=== PATIENT | male | born 1935 | race Caucasian/White ===

== ENCOUNTER 2018-06-10 13:46 | Emergency (ER) | payer MEDICAID ==
[~2018-06-10] VITALS: Ht 167.6 cm; Wt 48.0 kg
[2018-06-10] MEDS ORDERED: HYDROcodone/APAP 5/325 TABLET PO ONE (14:00)
[2018-06-10] MEDS ORDERED: HYDROcodone/APAP 5/325 TABLET ONE (14:18)
--- NOTE | 2018-06-10 14:21 | NUR ---
PT ON BP CUFF, PULSE OX. WARM BLANKET PROVIDED. NORCO GIVEN PER ERP ORDER FOR 06/15 PAIN. CALL LIGHT WITHIN REACH.
--- NOTE | 2018-06-10 14:37 | NUR ---
ALL RESULTS BACK, PT FOR RECHECK.
[2018-06-10 15:27] VITALS: BP 122/61
== END 2018-06-10 15:37 | disposition home or self-care (01) ==
LOC: ED 14:34
DX: S22.41XA Multiple fractures of ribs, right side, initial encounter for closed fracture (principal); W19.XXXA Unspecified fall, initial encounter; Y93.89 Activity, other specified; Y92.89 Other specified places as the place of occurrence of the external cause; Y99.8 Other external cause status
CPT/HCPCS: 99283

== ENCOUNTER 2019-02-19 07:22 | Emergency (ER) | payer MEDICARE ==
[~2019-02-19] VITALS: Ht 177.8 cm; Wt 59.4 kg
[2019-02-19 07:23] VITALS: BP 138/71
[2019-02-19 08:28] LABS: ALANINE AMINOTRANSFERASE 24 U/L (12-78); ALBUMIN 3.6 g/dL (3.4-5.0); ANION GAP 6 mmol/L (5-15); CHLORIDE 107 mmol/L (98-107); CREATININE 0.87 mg/dL (0.7-1.3)
[2019-02-19 08:30] LABS: ALKALINE PHOSPHATASE 111 U/L (45-117); BILIRUBIN,TOTAL 0.6 mg/dL (0.2-1.0); TOTAL PROTEIN 7.6 g/dL (6.4-8.2)
[2019-02-19 08:33] LABS: MEAN CORPUSCULAR HEMOGLOBIN 32.7 pg (27.5-34.5); MEAN CORPUSCULAR HGB CONC 33.5 g/dL (33.2-36.2); MEAN CORPUSCULAR VOLUME 97.7 fL (81-97); MEAN PLATELET VOLUME 8.2 fL (7.4-10.4); PLATELET COUNT 323 x10^3/uL (130-400); RED BLOOD COUNT 4.41 x10^6/uL (4.38-5.82); RED CELL DISTRIBUTION WIDTH 14.2 % (9.4-14.8)
[2019-02-19 09:05] LABS: BASOPHILS # (AUTO) 0.03 x10^3/uL (0-0.1); BASOPHILS % (AUTO) 0 % (0-1); EOSINOPHILS # (AUTO) 0.74 x10^3/uL (0-0.4); EOSINOPHILS % (AUTO) 8 % (1-7); LYMPHOCYTES # (AUTO) 1.68 x10^3/uL (1-3.4); LYMPHOCYTES % (AUTO) 18 % (22-44); MD NO; MONOCYTES # (AUTO) 0.69 x10^3/uL (0.2-0.8); MONOCYTES % (AUTO) 8 % (2-9); NEUTROPHILS # (AUTO) 6.01 x10^3/uL (1.8-6.8); NEUTROPHILS % (AUTO) 66 % (42-75)
== END 2019-02-19 10:19 | disposition home or self-care (01) ==
LOC: ED 09:59
DX: B34.9 Viral infection, unspecified (principal); Z72.89 Other problems related to lifestyle
CPT/HCPCS: 36415; 71046; 80053; 80307; 83880; 85025; 99284

== ENCOUNTER 2019-02-22 16:42 | Emergency (ER) | payer MEDICARE ==
[~2019-02-22] VITALS: Ht 172.7 cm; Wt 60.3 kg
[2019-02-22 17:09] VITALS: BP 134/82
== END 2019-02-22 18:52 | disposition home or self-care (01) ==
LOC: ED 18:46
DX: B86 Scabies (principal); Z76.0 Encounter for issue of repeat prescription; R05 Cough; F17.200 Nicotine dependence, unspecified, uncomplicated
CPT/HCPCS: 99283